=== PATIENT | female | born 1985 ===

== ENCOUNTER 2017-07-22 10:12 | Emergency (ER) | payer MEDICAID ==
[~2017-07-22] VITALS: Ht 157.5 cm; Wt 72.5 kg
[2017-07-22 10:16] VITALS: Ht 157.5 cm; Wt 72.5 kg
[2017-07-22] MEDS ORDERED: VALA10004 PO (10:55)
[2017-07-22] MEDS ORDERED: PRED20TA PO (10:55)
[2017-07-22] MEDS ORDERED: HYDR-906 PO (10:56)
[2017-07-22] MEDS ORDERED: IBUP-1542 PO (10:56)
--- NOTE | 2017-07-22 11:13 | ERD ---
ER Documentation Chief Complaint Chief Complaint Complains of an allergic reaction x 3 days HPI Patient is a 32-year-old female who presents ED for concerns of a rash on her left buttocks which is now spreading down her left leg. Patient states initially started having burning and tingling pain before the rash started. Patient states that she initially had lesions only to her left buttocks however this morning she noted some lesions down her left leg. Patient states throughout the night she was noticing tingling down her left leg. Patient denies any lip swelling, tongue swelling, throat closure sensation or difficulty breathing. Patient denies any fever, chills, chest pain, shortness of breath or loss consciousness. Patient denies any new creams, lotions or medications. No recent travel. No sick contacts. Patient is not . ROS All systems reviewed and are negative except as per history of present illness. Medications Home Meds Active Scripts Hydrocodone/Acetaminophen (Grannis 5-325 Tablet) 1 Each Tablet, 1 TAB PO Q6H Y for PAIN, #12 TAB Prov:RAMYA RODRIGUEZ PA-C 07/22/17 Ibuprofen* (Motrin*) 600 Mg Tab, 600 MG PO Q6, #30 TAB Prov:RAMYA RODRIGUEZ PA-C 07/22/17 Prednisone* (Prednisone*) 20 Mg Tab, 40 MG PO DAILY for 5 Days, TAB Prov:RAMYA RODRIGUEZ PA-C 07/22/17 Valacyclovir HCl (Valtrex) 1,000 Mg Tablet, 1000 MG PO TID for 7 Days, TAB Prov:RAMYA RODRIGUEZ PA-C 07/22/17 Physical Exam Vitals Vital Signs Date Time Temp Pulse Resp B/P Pulse Ox O2 Delivery O2 Flow Rate FiO2 07/22/17 10:16 98.8 98 20 128/78 100 Physical Exam GENERAL: Well-developed, well-nourished female. Appears in no acute distress. Speaking in full sentences. HEAD: Normocephalic, atraumatic. EYES: Pupils are equally reactive bilaterally. EOMs grossly intact. No conjunctival erythema. ENT: Moist mucous membranes. No uvula deviation. No kissing tonsils. No lip swelling. No tongue swelling. NECK: Supple. No meningismus. Normal range of motion of the neck. LUNG: Clear to auscultation bilaterally. No rhonchi, wheezing, rales or coarse breath sounds. HEART: Regular rate and rhythm. No murmurs, rubs or gallops. EXTREMITIES: Equal pulses bilaterally. No peripheral clubbing, cyanosis or edema. No unilateral leg swelling. NEUROLOGIC: Alert and oriented. Moving all four extremities without any difficulty. Normal speech. Steady gait. SKIN: Erythematous vesicular lesions noted on the patient's left lower back/ buttocks radiating down anterior left leg in dermatomal fashion (L3-L4 dermatomes). No active bleeding. Negative Nikolsky sign. Procedures/MDM MEDICAL DECISION MAKING: This is a 32-year-old female who presents ED for concerns of a rash on her left buttocks radiating down the anterior portion of her left leg. Patient states she initially had tingling and burning pain prior to the onset of the rash. Patient denies any new creams, lotions or products. Patient denies any fevers. Patient is not . Vital signs were reviewed. Patient was afebrile. Patient is not diabetic. Skin exam revealed findings consistent with shingles. Low suspicion for necrotizing fasciitis, sepsis, gangrene, Randall-Sandeep syndrome, toxic epidural necrolysis, abscess, cellulitis, herpes zoster, viral exanthem, anaphylaxis, allergic reaction, allergic contact dermatitis, irritant contact dermatitis, fungal infection, insect bites. Patient was advised to avoid contact with any females. PRESCRIPTIONS: Prednisone, valacyclovir, Grannis, ibuprofen DISCHARGE: At this time, patient is stable for discharge and outpatient management. I have advised the patient to avoid any new products, creams or possible allergens. I have advised the patient to avoid scratching the lesions. I have instructed the patient to follow-up with his/her primary care physician in 1-2 days. If symptoms persist, patient may need to see a digital watch assembler for further examinations and testing. I have instructed the patient to promptly return to the ER at any time for any new or worsening symptoms including increased pain, fever, redness, swelling, warmth, difficulty breathing or vomiting. The patient and/or family expressed understanding of and agreement with this plan. All questions were answered. Home care instructions were provided. Disclaimer: Inadvertent spelling and grammatical errors are likely due to EHR/ dictation software use and do not reflect on the overall quality of patient care. Also, please note that the electronic time recorded on this note does not necessarily reflect the actual time of the patient encounter. Departure Diagnosis: Primary Impression: Shingles rash Herpes zoster complications: without complications Qualified Code: B02.9 - Herpes zoster without complication Condition: Stable Patient Instructions: Shingles (Herpes Zoster) Referrals: [facility] YOU HAVE RECEIVED A MEDICAL SCREENING EXAM AND THE RESULTS INDICATE THAT YOU DO NOT HAVE A CONDITION THAT REQUIRES URGENT TREATMENT IN THE EMERGENCY DEPARTMENT. FURTHER EVALUATION AND TREATMENT OF YOUR CONDITION CAN WAIT UNTIL YOU ARE SEEN IN YOUR DOCTORS OFFICE WITHIN THE NEXT 1-2 DAYS. IT IS YOUR RESPONSIBILITY TO MAKE AN APPOINTMENT FOR FOLOW-UP CARE. IF YOU HAVE A PRIMARY DOCTOR --you should call your primary doctor and schedule an appointment IF YOU DO NOT HAVE A PRIMARY DOCTOR YOU CAN CALL OUR PHYSICIAN REFERRAL HOTLINE AT IF YOU CAN NOT AFFORD TO SEE A PHYSICIAN YOU CAN CHOSE FROM THE FOLLOWING [facility] [address] [facility] [address] [facility] [facility] [address] [facility] [address] [facility] [address] [facility]. [facility]. [address] [facility]. [facility] YOU HAVE RECEIVED A MEDICAL SCREENING EXAM AND THE RESULTS INDICATE THAT YOU DO NOT HAVE A CONDITION THAT REQUIRES URGENT TREATMENT IN THE EMERGENCY DEPARTMENT. FURTHER EVALUATION AND TREATMENT OF YOUR CONDITION CAN WAIT UNTIL YOU ARE SEEN IN YOUR DOCTORS OFFICE WITHIN THE NEXT 1-2 DAYS. IT IS YOUR RESPONSIBILITY TO MAKE AN APPOINTMENT FOR FOLOW-UP CARE. IF YOU HAVE A PRIMARY DOCTOR --you should call your primary doctor and schedule and appointment IF YOU DO NOT HAVE A PRIMARY DOCTOR YOU CAN CALL OUR PHYSICIAN REFERRAL HOTLINE AT . IF YOU CAN NOT AFFORD TO SEE A PHYSICIAN YOU CAN CHOSE FROM THE FOLLOWING [facility] INSTITUTIONS: [facility] [address] [place] [address] [facility] [address] [place] [address] [facility] [address] [address] Additional Instructions: Call your primary care doctor TOMORROW for an appointment during the next 1-2 days.See the doctor sooner or return here if your condition worsens before your appointment time. RAMYA RODRIGUEZ PA-C Jul 22, 2017 11:13
== END 2017-07-22 11:33 | disposition home or self-care (01) ==
LOC: FTE 10:12
DX: B02.9 Zoster without complications (principal)
CPT/HCPCS: 99284